=== PATIENT | male | born 1975 | race African-American/Black ===

== ENCOUNTER 2019-01-14 10:22 | Emergency (ER) | payer MEDICAID ==
--- NOTE | 2019-01-14 11:10 | EDPHY ---
H & P Stated Complaint: mid left back pain x 2 days no trauma-worse with mvmt Source: Patient Exam Limitations: No limitations - Medical/Surgical History Hx Asthma: No Hx Chronic Respiratory Disease: No Hx Diabetes: No Hx Cardiac Disease: No Hx Renal Disease: No Hx Cirrhosis: No Hx Alcoholism: No Hx HIV/AIDS: No Hx Splenectomy or Spleen Trauma: No - Social History Smoking Status: Current every day smoker Time Seen by Provider: 01/14/19 11:09 HPI/ROS: HPI: This is a 43-year-old male who presents with Chief Complaint: mid left back pain x 2 days no trauma-worse with mvmt Location: Left mid and lower back Quality: Pain Duration: 2 days Signs and Symptoms: No bleeding, + radiation, no numbness, no weakness, no tingling, no incontinence, no decreased range of motion, no swelling, + pain, no fever Timing: Acute, worse with certain movements Severity: Moderate Context: Patient is employed by the [employer] to work program presents with complaints of left mid and lower back pain that is nonradiating in nature. Reports that the pain is worsened with certain movements. Was hauling Water several days ago and believes this may have been the inciting injury. Complains of lumbar back pain radiating up into thoracic area. Pain is increased with flexion, extension, bilateral rotation. Denies any change in bowel or bladder habits. Modifying Factors: [id number] medications without relief Comment: ROS: A comprehensive 10 system review of systems is otherwise negative aside from elements mentioned in the history of present illness. MEDICAL/SURGICAL/SOCIAL HISTORY: Medical history: Generally healthy. Does not take any regular medications. Surgical history: Denies Social history: Employed. Denies alcohol use. CONSTITUTIONAL: Mild distress, polite and cooperative, middle-aged black male, awake and alert HEENT: Atraumatic and normocephalic. NECK: supple, no midline tenderness, flexion 45 degrees, extension 45 degrees, right and left lateral flexion 45 degrees. No meningismus. Cardiovascular: Normal S1/S2, regular rate, regular rhythm, without murmur rub or gallop. PULMONARY/CHEST: Symmetrical and nontender. no crepitus. Clear to auscultation bilaterally. Good air movement. No accessory muscle usage. ABDOMEN: Soft, nondistended, nontender, no ecchymosis. PELVIC: no pain with rocking; bilateral hips flexion 125 degrees, extension 30 degrees, with no pain internal rotation and no pain external rotation. BACK: No midline tenderness, no paraspinous spasm, deep tendon reflexes 2/2, no pain with straight leg raise, No foot drop. Achilles reflexes are equal bilaterally. Able to walk on heels and toes without difficulty. EXTREMITIES: 2/2 pulses, strength 5/5, DIP/PIP/MCP flexion/extension intact with good light touch sensation. no deformities, no clubbing, no cyanosis or edema. NEUROLOGICAL: no focal neuro deficits. GCS 15. Light touch sensation intact. SKIN: Warm and dry, no erythema. no rash. Good capillary refill. (Patti Shi) Constitutional: Initial Vital Signs Temperature (C) 36.5 C 01/14/19 10:31 Heart Rate 82 01/14/19 10:31 Respiratory Rate 16 01/14/19 10:31 Blood Pressure 114/76 01/14/19 10:31 O2 Sat (%) 97 01/14/19 10:31 O2 Delivery Mode Room Air Allergies/Adverse Reactions: No Known Allergies Allergy (Unverified 01/14/19 11:53) Home Medications: Medication Instructions Recorded Cyclobenzaprine [Flexeril 10 MG 10 mg PO TID PRN #15 tab 01/14/19 (*)] oxyCODONE/APAP 5/325 [Percocet 1 - 2 tab PO Q4H PRN #6 tab 01/14/19 5/325 (*)] Medical Decision Making - Diagnostics Imaging Results: Imaging Impressions Lumbar Spine X-Ray 01/14/19 11:10 Impression: Normal lumbar spine. No arthropathy, fracture or bone lesion. Thoracic Spine X-Ray 01/14/19 11:10 Impression: 1. No compression fracture or explanation for pain. 2. Bibasilar atelectasis. ED Course/Re-evaluation: Vital signs reviewed and stable upon arrival. Urinalysis, thoracic x-rays, lumbosacral x-rays ordered No neurological deficits to warrant emergent MRI Patient given PO Tylenol 1000 mg, p.o. Gabapentin 600 mg, Lidoderm patch, p.o. Flexeril 5 mg X-rays my read show no significant degenerative changes, no fracture. 1147: Urinalysis shows trace ketones; no signs of infection, no hematuria Patient had adequate relief of pain and given prescription for Flexeril and small number of Percocet for lumbar strain. No signs of neurovascular compromise/tenting of skin/compartment syndrome/ extremities and joints examined above and below area of concern and are neurovascularly intact/cauda equina syndrome/saddle anesthesia. This patient was seen under the supervision of my secondary supervising physician. I evaluated care for this patient with attending. (Patti Shi) The patient was evaluated and managed by the physician phys assistant. I have reviewed this chart and I agree with the findings and plan of care as documented , as indicated by my signature. I am the secondary supervising physician. ( Elaina Jacobson) Differential Diagnosis: Back pain including but not limited to muscular pain, herniated disc, spine fracture, intra-abdominal causes and urinary tract infection. (Patti Shi) - Data Points Laboratory Results: 01/14/19 10:45 Urine Color YELLOW Urine Appearance CLEAR Urine pH 5.0 (5.0-7.5) Ur Specific [place] 1.027 (1.002-1.030) Urine Protein NEGATIVE (NEGATIVE) Urine Ketones TRACE H (NEGATIVE) Urine Blood NEGATIVE (NEGATIVE) Urine Nitrate NEGATIVE (NEGATIVE) Urine Bilirubin NEGATIVE (NEGATIVE) Urine Urobilinogen NEGATIVE EU EU (0.2-1.0) Ur Leukocyte Esterase NEGATIVE (NEGATIVE) Urine Glucose NEGATIVE (NEGATIVE) Medications Given: Discontinued Medications Acetaminophen (Tylenol) 1,000 mg PO EDNOW ONE Stop: 01/14/19 11:22 Last Admin: 01/14/19 11:33 Dose: 1,000 mg Cyclobenzaprine HCl (Flexeril) 10 mg PO EDNOW ONE Stop: 01/14/19 11:22 Last Admin: 01/14/19 11:33 Dose: 10 mg Gabapentin (Neurontin) 600 mg PO EDNOW ONE Stop: 01/14/19 11:22 Last Admin: 01/14/19 11:33 Dose: 600 mg Miscellaneous Information (Patch Removal) 1 ea TD DAILY21 NU Stop: 07/13/19 20:59 Last Admin: 01/14/19 11:36 Dose: 1 ea Miscellaneous Medication (Icy Hot Lidocaine/Menthol 4%/1% Patch) 1 patch TD EDNOW ONE Stop: 01/14/19 11:22 Last Admin: 01/14/19 11:34 Dose: 1 patch Departure - Departure Disposition: Home, Routine, Self-Care Clinical Impression: Lumbar back pain Lumbar strain Qualifiers: Encounter type: initial encounter Qualified Code(s): S39.012A - Strain of muscle, fascia and tendon of lower back, initial encounter Condition: Good Instructions: Low Back Strain (ED) Additional Instructions: Please avoid lifting greater than 10 lb until all back pain has resolved. Take Tylenol 650 mg every 4 hours and/or Ibuprofen 600 mg every 8 hours with food as needed for pain. Use Percocet every 6 hours as needed for severe/break through pain. Use Flexeril every 8 hr as needed for muscle spasms. The x-rays obtained in the emergency department today demonstrate no evidence of an obvious fracture. Follow up with PCP in 7-10 days symptoms do not resolve at which time they will evaluate and recommend with you if conservative management versus MRI is indicated. Return to the ER immediately if you have new or worsening back pain, fevers/ chills, flu like symptoms, incontinence or inability to urinate or defecate, weakness, paralysis, or any other symptom that concerns you Referrals: [facility],. [Clinic] - As per Instructions Stand Alone Forms: Work Excuse Prescriptions: Cyclobenzaprine [Flexeril 10 MG (*)] 10 mg PO TID PRN #15 tab PRN Reason: Spasms oxyCODONE/APAP 5/325 [Percocet 5/325 (*)] 1 - 2 tab PO Q4H PRN #6 tab PRN Reason: Pain, Severe
[2019-01-14] MEDS ORDERED: ACETAMINOPHEN 500 MG TAB PO ONE (11:21)
[2019-01-14] MEDS ORDERED: CYCLOBENZAPRINE 10 MG TAB PO ONE (11:21)
[2019-01-14] MEDS ORDERED: GABAPENTIN 300 MG CAP PO ONE (11:21)
[2019-01-14] MEDS ORDERED: LIDOCAINE 4%/MENTHOL 1% PATCH TD ONE (11:21)
[2019-01-14 12:11] VITALS: BP 116/71
[2019-01-14] MEDS ORDERED: PATCH REMOVAL 1 EA PATCH TD SCH (21:00)
== END 2019-01-14 12:10 | disposition home or self-care (01) ==
LOC: EEVIPCON 10:22
DX: S39.012A Strain of muscle, fascia and tendon of lower back, initial encounter (principal); X50.0XXA Overexertion from strenuous movement or load, initial encounter

== ENCOUNTER 2019-02-17 16:16 | Emergency (ER) | payer MEDICAID ==
--- NOTE | 2019-02-17 17:37 | EDPHY ---
H & P Time Seen by Provider: 02/17/19 16:36 HPI/ROS: CHIEF COMPLAINT: "Spot" on right eyelid HISTORY OF PRESENT ILLNESS: 43-year-old male presents emergency department with a primary complaint of a small lesion on his right eyelid. No fevers, erythema, or vision changes. No trauma. Reports it is somewhat painful and itchy. Mild discomfort in the eyelid itself is causing the patient to complain of a headache. REVIEW OF SYSTEMS: A comprehensive 10 system review of systems was reviewed and is otherwise negative aside from elements mentioned in the history of present illness and medical decision making. PAST MEDICAL HISTORY: Patient denies. SOCIAL HISTORY: Smoker. GENERAL APPEARANCE: No acute distress. Pleasant. Conversant. FOCUSED EXAM OF right eye: Eyelid: Mild erythema is present at the superior aspect of the upper eyelid. Patient has a small, 2 mm x 2 mm pustular lesion. Does not appear to be a vesicle. No other lesions are present on the face. This does not involve the lid margin. Pupils: 4 mm Round and reactive to light EOMI Conjunctivae: No injection, no discharge. Smoking Status: Current every day smoker Constitutional: Initial Vital Signs Temperature (C) 36.6 C 02/17/19 16:18 Heart Rate 82 02/17/19 16:18 Respiratory Rate 16 02/17/19 16:18 Blood Pressure 123/79 H 02/17/19 16:18 O2 Sat (%) 97 02/17/19 16:18 O2 Delivery Mode Room Air Allergies/Adverse Reactions: peanut Allergy (Verified 02/17/19 16:21) Home Medications: Medication Instructions Recorded Cyclobenzaprine [Flexeril 10 MG 10 mg PO TID PRN #15 tab 01/14/19 (*)] oxyCODONE/APAP 5/325 [Percocet 1 - 2 tab PO Q4H PRN #6 tab 01/14/19 5/325 (*)] Cephalexin [Keflex (*)] 500 mg PO TID #21 cap 02/17/19 Ofloxacin 0.3% [Ocuflox 0.3%] 2 drops OP QID 5 Days #1 opht.btl 02/17/19 MDM/Departure - MDM ED Course/Re-evaluation: 43-year-old male with a small skin pustule on the upper eyelid. Patient was instructed regarding topical antibiotic cream, is placed on ofloxacin eyedrops. Was given keflex for mild surrounding cellulitis. Follow up with primary care physician if not improving as expected. - Depart Disposition: Home, Routine, Self-Care Clinical Impression: Skin abscess Qualifiers: Site of cutaneous abscess: face Qualified Code(s): L02.01 - Cutaneous abscess of face Condition: Good Instructions: Abscess (ED) Additional Instructions: Please take antibiotics as directed. Keflex 500 mg by mouth 3 times a day. Please use the eyedrops as directed. Ofloxacin 1-2 drops in the affected eye 5 times a day. You may also apply a small amount of topical antibiotic cream on to the spot on your eyelid. Warm compress to the area may also be helpful. This means taking an nice warm/ hot washcloth and holding on your eye for 5-10 minute several times a day. Stand Alone Forms: Work Excuse Prescriptions: Cephalexin [Keflex (*)] 500 mg PO TID #21 cap Ofloxacin 0.3% [Ocuflox 0.3%] 2 drops OP QID 5 Days #1 opht.btl Referrals: NONE *PRIMARY CARE P,. [Primary Care Provider] - As per Instructions
[2019-02-17 17:51] VITALS: BP 116/77
== END 2019-02-17 17:51 | disposition home or self-care (01) ==
DX: L02.01 Cutaneous abscess of face (principal)